=== PATIENT | male | born 1980 | race Caucasian/White ===

== ENCOUNTER 2018-05-22 08:35 | Emergency (ER) | payer OTHER ==
[2018-05-22 09:17] LABS: APPEARANCE,URINE Clear (CLEAR); BILIRUBIN,URINE Negative (NEGATIVE); COLOR,URINE Yellow (YELLOW); GLUCOSE, URINE (UA) Negative (NEGATIVE); KETONES,URINE Negative (NEGATIVE); LEUKOCYTE ESTERASE ,URINE Trace (NEGATIVE); NITRATE,URINE Negative (NEGATIVE); OCCULT BLOOD,URINE Negative (NEGATIVE); PH,URINE 5.5 (5.0-8.0); PROTEIN,URINE Negative (NEGATIVE)
[2018-05-22 09:19] LABS: BACTERIA,URINE Rare /HPF (None Seen); RBC,URINE 0-1 /HPF (0-1); SQUAMOUS EPITHELIAL CELL,UR Rare /HPF (0-2); WBC,URINE 0-1 /HPF (0-1)
[2018-05-22] MEDS ORDERED: CEFTRIAXONE SODIUM 500 MG VIAL ONE (09:59)
[2018-05-22] MEDS ORDERED: LIDOCAINE HCL-MPF 1% 2ML VIAL ONE (10:00)
[2018-05-22] MEDS ORDERED: AZITHROMYCIN 250 MG TABLET PO ONE (10:00)
== END 2018-05-22 10:21 | disposition home or self-care (01) ==
LOC: EDH 08:35
DX: B00.9 Herpesviral infection, unspecified (principal); N50.9 Disorder of male genital organs, unspecified; Z72.0 Tobacco use
CPT/HCPCS: 81001; 87486; 87797; 99283; J0696; J3490

== ENCOUNTER 2019-02-05 09:26 | Emergency (ER) | payer SELFPAY ==
[2019-02-05] MEDS ORDERED: KETOROLAC TROMETHAMINE 60 MG/2 ML VIAL ONE (10:11)
== END 2019-02-05 10:26 | disposition home or self-care (01) ==
LOC: EDH 09:26
DX: K64.9 Unspecified hemorrhoids (principal); Z72.0 Tobacco use
CPT/HCPCS: 96372; 99283; J1885

== ENCOUNTER 2019-03-30 00:05 | Emergency (ER) | payer SELFPAY ==
[2019-03-30 01:00] LABS: APPEARANCE,URINE Clear (CLEAR); BILIRUBIN,URINE Negative (NEGATIVE); COLOR,URINE Yellow (YELLOW); GLUCOSE, URINE (UA) Negative (NEGATIVE); KETONES,URINE Negative (NEGATIVE); LEUKOCYTE ESTERASE ,URINE Negative (NEGATIVE); NITRATE,URINE Negative (NEGATIVE); OCCULT BLOOD,URINE Negative (NEGATIVE); PROTEIN,URINE Negative (NEGATIVE)
[2019-03-30] MEDS ORDERED: LIDOCAINE HCL 2% VISCOUS 15 ML UDCUP ONE (01:23)
== END 2019-03-30 01:41 | disposition home or self-care (01) ==
LOC: EDH 00:05
DX: A60.01 Herpesviral infection of penis (principal)
CPT/HCPCS: 81003

== ENCOUNTER 2019-04-01 15:47 | Emergency (ER) | payer SELFPAY ==
[2019-04-01 17:05] LABS: APPEARANCE,URINE Clear (CLEAR); BILIRUBIN,URINE Negative (NEGATIVE); COLOR,URINE Yellow (YELLOW); GLUCOSE, URINE (UA) Negative (NEGATIVE); KETONES,URINE Trace mg/dL (NEGATIVE); LEUKOCYTE ESTERASE ,URINE Negative (NEGATIVE); NITRATE,URINE Negative (NEGATIVE); OCCULT BLOOD,URINE Negative (NEGATIVE); PH,URINE 5.5 (5.0-8.0); PROTEIN,URINE Negative (NEGATIVE)
[2019-04-01] MEDS ORDERED: CEFTRIAXONE SODIUM 500 MG VIAL ONE (17:36)
[2019-04-01] MEDS ORDERED: AZITHROMYCIN 250 MG TABLET PO ONE (17:37)
[2019-04-01] MEDS ORDERED: ONDANSETRON ODT 4 MG TAB ONE (17:38)
[2019-04-01] MEDS ORDERED: LIDOCAINE HCL-MPF 1% 2ML VIAL ONE (17:38)
[2019-04-01 17:53] LABS: RAPID PLASMA REAGIN REACTIVE (NONREACTIVE)
[2019-04-01 17:54] LABS: RAPID PLASMA REAGIN TITER REACTIVE 1:8 (NONREACTIVE)
[2019-04-01 18:00] LABS: BACTERIA,URINE Rare /HPF (None Seen); CALCIUM OXALATE CRYSTALS,UR Moderate /LPF (None Seen); MUCUS,URINE Few LPF (None Seen); SQUAMOUS EPITHELIAL CELL,UR 0-2 /HPF (0-2); WBC,URINE 0-1 /HPF (0-1)
[2019-04-02] MEDS ORDERED: PENICILLIN G BENZATHINE LA 1.2 MILUNITS/2 ML SYG ONE (21:42)
== END 2019-04-01 18:31 | disposition home or self-care (01) ==
LOC: EDH 15:47
DX: A60.01 Herpesviral infection of penis (principal); A53.9 Syphilis, unspecified; Z72.0 Tobacco use
CPT/HCPCS: 36415; 81001; 86592; 86780; 87486; 87797; 96372; 99284; J0696; J3490; J0561

== ENCOUNTER 2020-03-08 15:39 | Emergency (ER) | payer SELFPAY | END 2020-03-08 17:39 | disposition home or self-care (01) | LOC: EDH 15:39 | DX: T16.2XXA Foreign body in left ear, initial encounter (principal); Z72.0 Tobacco use; X58.XXXA Exposure to other specified factors, initial encounter; Y93.89 Activity, other specified; Y92.89 Other specified places as the place of occurrence of the external cause; Y99.8 Other external cause status | CPT/HCPCS: 69200 ==

== ENCOUNTER 2024-08-07 21:48 | Emergency (ER) | payer BC ==
[~2024-08-07] VITALS: Ht 170.2 cm; Wt 118.4 kg
--- NOTE | 2024-08-07 22:04 | ERN ---
General Chief Complaint: Abscess Stated Complaint: C/O ABSCESS TO RT LOWER LEG Time Seen by MD: 21:53 Source: patient History of Present Illness Initial Comments Patient healthy 44-year-old male who was working and he got some wood splinters into his right lower extremity three weeks ago. He was seen immediately after that and given antibiotics for one week which he completed. Since then the area has remained red erythematous with swelling and a black scab. He has had an x- ray twice at different emergency rooms, both times being told that there are no retained objects. He feels like there is still something stuck in there and that is why he still has redness swelling and pain in the area. No fevers or chills. Allergies: Coded Allergies: No Known Drug Allergies (Unverified Allergy, Unknown, 03/30/19) Past Medical History Past Medical History: No Pertinent History Past Surgical History: None ROS Dictation Review of systems is otherwise negative. Physical Exam Extremities Comment Right leg medial calf region there is an area of mild induration redness swelling warm with a scab. I will get a CT scan of the patient's leg before attempting to unroof and explore the wound. I have ordered a BMP. Results Laboratory and Microbiology Lab and Micro Result Laboratory Tests Test 08/07/24 22:42 Sodium Level 135 mmol/L (136-145) L Potassium Level 3.9 mmol/L (3.5-5.1) Chloride Level 102 mmol/L (101-111) Carbon Dioxide Level 26 mmol/L (21-32) Blood Urea Nitrogen 13 mg/dL (7-18) Creatinine 1.0 mg/dL (0.5-1.3) Glomerular Filtration Rate Calc 96 mL/min (>90) Random Glucose 96 mg/dL (70-105) Total Calcium 9.5 mg/dL (8.5-10.1) MDM Please see procedure for details I did get a CT scan of the patient's right calf and it did show a long thin foreign object imbedded in his muscle extending almost from skin to skin along the posterior transverse gastrocnemius soleus muscles ED Course Orders Procedure Category Date Status Time Ct Low Ext W/Wo CT 08/07/24 Resulted Contrast 22:00 Basic Metabolic Panel LAB 08/07/24 Complete 22:00 Iohexol (Omnipaque) PHA 08/07/24 Complete 23:55 Lidocaine 2%-Epi PHA 08/08/24 Complete 1:200,000 (Lidocaine 00:30 *Nursing CPOE 08/08/24 Transmitted Communication: 00:28 Lidocaine Hcl 1% 20ml PHA 08/08/24 Complete Vial (Lidocaine Hc 01:30 Current Medications Medications (Trade) Dose Ordered Sig/Lillian Route PRN Reason Start Time Stop Time Status Last Admin Dose Admin Iohexol (Omnipaque) 35,000 mg STK-MED ONCE IV 08/07/24 23:55 08/07/24 23:56 DC Lidocaine HCl (Lidocaine HCl 1% 20ml Vial) 10 ml ONCE ONCE INJ 08/08/24 01:30 08/08/24 01:31 DC 08/08/24 01:33 Lidocaine/ Epinephrine (Lidocaine 2%-Epi 1:200,000) 20 ml ONCE IJ 08/08/24 00:30 08/08/24 01:00 DC Vital Signs Date Time Temp Pulse Resp B/P (MAP) Pulse Ox O2 Delivery O2 Flow Rate FiO2 08/07/24 22:58 98.8 92 16 132/88 97 Room Air* 0 21 08/07/24 21:50 99.0 91 20 135/90 96 Room Air Incision and Drainage Incision and Drainage : Site: 1/4 inch Blade Size: 11 I & D Procedure: no betadine prep Progress Patient has on his right lateral calf an area of raised skin near a blackened area from a wound. I numbed up this area and made a 2 cm incision. Wound exploration found a large piece of wood approximately 4 in long which I removed intact. I packed the incision with a little Nu Gauze. DX & DISP Disposition: Discharge Departure Impression: Primary Impression: Foreign body (FB) in soft tissue Condition: Stable Scripts Cephalexin Monohydrate (Keflex) 500 Mg Cap 500 MG PO QID for 4 Days, #16 CAP Prov: GINA MOORE MD 08/08/24 Additional Instructions: The foreign body has been in your body for approximately a month and it was removed under sterile technique. The wound is at low risk for infection. Therefore I for four days of antibiotics. If the redness and swelling does not go away in the next day or two please return for more antibiotics. Please follow-up with your primary care physician or your work physician in a week to be sure it is healing properly. Referrals: SELF,REFERRAL (PCP) GINA MOORE MD Aug 07, 2024 22:04
[2024-08-07 22:58] VITALS: BP 132/88; PULSE 92; RESP 16; TEMP 98.8; O2SAT 97
[2024-08-07 23:01] LABS: POTASSIUM 3.9 mmol/L (3.5-5.1)
--- NOTE | 2024-08-07 23:01 | NUR ---
consent for ct with contrasted signed by patient
[2024-08-07] MEDS ORDERED: IOHEXOL 350 MG/ML 100ML INFUS..BTL IV ONE (23:55)
[2024-08-08] MEDS: LIDOCAINE 2%-EPI 1:200,000 20 ML VIAL IJ SCH (00:30)
--- NOTE | 2024-08-08 01:01 | HMCIMG ---
CT LOW EXT W/WO CONTRAST HISTORY: Right leg foreign object COMPARISON: None TECHNIQUE: Multiple sequential axial images of the right tibia and fibula were obtained including post processing sagittal and coronal reconstruction images. Patient was given 100 cc of Isovue through intravenous route. FINDINGS: Linear radiopaque density is seen in the lateral aspect of the mid calf muscle region measuring approximately 5 cm consistent with a foreign body. No acute displaced fracture or dislocations. IMPRESSION: 1. No fracture is seen. Linear radiopaque density is seen in the lateral aspect of the mid calf muscle region measuring approximately 5 cm consistent with a foreign body. CT was performed with one or more following dose reduction techniques: automated exposure control, adjustment of the mA and kv according to patient's size, or use of a iterative reconstruction technique.
--- NOTE | 2024-08-08 01:10 | NUR ---
laceration tray/suture set up placed at bedside for er physician
[2024-08-08] MEDS: LIDOCAINE HCL 1% 20 ML VIAL INJ ONE (01:33)
--- NOTE | 2024-08-08 01:33 | NUR ---
lidocaine administered by Dr Mccann
[2024-08-08] MEDS ORDERED: CEPH500B PO (01:44)
== END 2024-08-08 01:56 | disposition home or self-care (01) ==
LOC: EDH 21:48
DX: M79.5 Residual foreign body in soft tissue (principal)
CPT/HCPCS: 99284; 10060; 73702; 80048; 36415; Q9967